=== PATIENT | male | born 1960 | race Caucasian/White ===

== ENCOUNTER 2018-06-23 11:06 | Emergency (ER) | payer MEDICAID, OTHER ==
[~2018-06-23] VITALS: Ht 177.8 cm; Wt 81.0 kg
[2018-06-23 11:13] VITALS: BP 164/96
== END 2018-06-23 12:47 | disposition home or self-care (01) ==
LOC: ER 11:07
DX: S63.502A Unspecified sprain of left wrist, initial encounter (principal); I10 Essential (primary) hypertension; F17.200 Nicotine dependence, unspecified, uncomplicated; W18.39XA Other fall on same level, initial encounter; Y93.89 Activity, other specified; Y92.89 Other specified places as the place of occurrence of the external cause; Y99.8 Other external cause status
CPT/HCPCS: 29125; 73110; 99284